=== PATIENT | female | born 1980 | race Caucasian/White ===

== ENCOUNTER 2016-08-16 12:50 | Emergency (ER) | payer OTHER ==
[~2016-08-16] VITALS: Ht 167.6 cm; Wt 52.2 kg
[2016-08-16 13:00] VITALS: BP 128/67
== END 2016-08-16 13:13 | disposition home or self-care (01) ==
LOC: ER 12:51
DX: T16.1XXA Foreign body in right ear, initial encounter (principal); X58.XXXA Exposure to other specified factors, initial encounter; Y93.89 Activity, other specified; Y92.89 Other specified places as the place of occurrence of the external cause; Y99.8 Other external cause status
CPT/HCPCS: A4606; Z7610

== ENCOUNTER 2016-09-18 11:54 | Emergency (ER) | payer OTHER ==
[~2016-09-18] VITALS: Ht 170.2 cm; Wt 49.9 kg
[2016-09-18 12:18] VITALS: BP 120/99
== END 2016-09-18 13:08 | disposition home or self-care (01) ==
LOC: ER 11:58
DX: H57.11 Ocular pain, right eye (principal); H10.89 Other conjunctivitis; Z88.0 Allergy status to penicillin; F17.210 Nicotine dependence, cigarettes, uncomplicated
CPT/HCPCS: A4606; Z7610